=== PATIENT | female | born 1975 | race Caucasian/White ===

== ENCOUNTER 2017-09-25 12:13 | Emergency (ER) | payer BC ==
[2017-09-25] MEDS ORDERED: IBUPROFEN 800 MG TABLET PO ONE (13:19)
--- NOTE | 2017-09-25 13:22 | ER Document Report ---
ED Fall - General Chief Complaint: Rib Pain Stated Complaint: FALL/BACK PAIN, RIB PAIN Time Seen by Provider: 09/25/17 12:55 Mode of Arrival: Ambulatory Information source: Patient Notes: 41-year-old female presents to ED for complaint of pain in the left chest abdomen and pelvis after falling off of a counter on to the [place] in the kitchen landing on her left side with pain in the ribs kidney and spleen area. Pain refuses any narcotic medicine at this time she has agreed to take an ibuprofen. She also has a history of a PE in 2000 a TIA in 2007 and states she has been off of blood thinners for 3 weeks. TRAVEL OUTSIDE OF THE [place] IN LAST 30 DAYS: No - HPI Occurred: Just prior to arrival Where: Home, Indoors Context: Tripped, Slipped Associated symptoms: None Location of injury/pain: Abdomen, Chest Quality of pain: Sharp, Throbbing Severity: Moderate Pain Level: 4 - Patient refused pain medicine except for ibuprofen which was given to her when she first came in. At discharge patient was convinced to take a Bridgewater dispense pack as she was in a lot of pain. - Related data Allergies/Adverse Reactions: No Known Allergies Allergy (Unverified 09/25/17 12:16) Past Medical History - General Information source: Patient - Social History Smoking Status: Current Every Day Smoker Chew tobacco use (# tins/day): No Frequency of alcohol use: Occasional Drug Abuse: None Lives with: Family Family History: Reviewed & Not Pertinent Patient has suicidal ideation: No Patient has homicidal ideation: No - Past Medical History Cardiac Medical History: Reports: Hx Pulmonary Embolism - 2000 Pulmonary Medical History: Reports: None EENT Medical History: Reports: None Neurological Medical History: Reports: Hx Cerebrovascular Accident - TIA in 2007 Endocrine Medical History: Reports: None Renal/ Medical History: Reports: None Malignancy Medical History: Reports: None GI Medical History: Reports: None Musculoskeltal Medical History: Reports None Skin Medical History: Reports None Psychiatric Medical History: Reports: None Traumatic Medical History: Reports: None Infectious Medical History: Reports: None Surgical Hx: Negative Past Surgical History: Reports: None Review of Systems - Review of Systems Constitutional: No symptoms reported EENT: No symptoms reported Cardiovascular: Chest pain - Left chest wall pain Respiratory: Hurts to breathe Gastrointestinal: Abdominal pain - Left upper abdomen pain Genitourinary: No symptoms reported Female Genitourinary: No symptoms reported Musculoskeletal: No symptoms reported Skin: No symptoms reported Hematologic/Lymphatic: No symptoms reported Neurological/Psychological: No symptoms reported Physical Exam - Vital signs Vitals: Temp Pulse Resp BP 97.6 F 73 18 114/76 09/25/17 12:21 09/25/17 12:21 09/25/17 12:21 09/25/17 12:21 Interpretation: Normal - General General appearance: Appears well, Alert - HEENT Head: Normocephalic, Atraumatic Eyes: Normal Pupils: PERRL - Respiratory Respiratory status: No respiratory distress Chest status: Tender, Ecchymosis - Left chest and abdomen, Pain on movement, Pain with cough, Pain with deep breathing Breath sounds: Normal Chest palpation: Normal - Cardiovascular Rhythm: Regular Heart sounds: Normal auscultation Murmur: No - Abdominal Inspection: Normal Distension: No distension Bowel sounds: Normal Tenderness: Tender - Left upper abdomen, bruising noted Organomegaly: No organomegaly. No: Splenomegaly, Mass - Back Back: Normal, Nontender - Extremities General upper extremity: Normal inspection, Nontender, Normal color, Normal ROM , Normal temperature General lower extremity: Normal inspection, Nontender, Normal color, Normal ROM , Normal temperature, Normal weight bearing. No: Ilana's sign - Neurological Neuro grossly intact: Yes Cognition: Normal Orientation: AAOx4 John Coma Scale Eye Opening: Spontaneous John Coma Scale Verbal: Oriented John Coma Scale Motor: Obeys Commands Gilbert Coma Scale Total: 15 Speech: Normal Motor strength normal: LUE, RUE, LLE, RLE Sensory: Normal - Psychological Associated symptoms: Normal affect, Normal mood - Skin Skin Temperature: Warm Skin Moisture: Dry Skin Color: Normal, Ecchymosis - Left chest and abdomen Course - Re-evaluation Re-evalutation: 09/25/17 22:12 CT abdomen pelvis and chest with contrast completed due to fall with pain with respirations of pain with movement to the left chest and abdomen. CT abdomen pelvis and chest were negative. These were discussed with patient and family. Patient was given ibuprofen for her pain when she first came in and she was discharged home with a Bridgewater dispense pack. Patient did not want to take any medication as she is breast-feeding but she was in a lot of pain. Patient was given instructions on the need to take deep breaths to prevent pneumonia. After much instruction she did agree to take the Bridgewater dispense pack. 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 Both very well aware of the risk involved with a fall and landing on her right chest and spleen and kidney area. Her CTs were negative. Patient and were instructed to return to ED for any increase in pain bruising or any other symptoms. - Vital Signs Vital signs: Temp Pulse Resp BP Pulse Ox 97.6 F 76 16 115/76 99 09/25/17 12:21 09/25/17 15:50 09/25/17 15:50 09/25/17 15:50 09/25/17 15:50 - Laboratory Result Diagrams: 09/25/17 13:35 Laboratory results interpreted by me: 09/25/17 13:35 Chloride 110 H Carbon Dioxide 18 L - Diagnostic Test Radiology reviewed: Image reviewed, Reports reviewed Discharge - Discharge Clinical Impression: abdominal contusion left Fall Qualifiers: Encounter type: initial encounter Qualified Code(s): W19.XXXA - Unspecified fall, initial encounter Contusion of rib on left side Qualifiers: Encounter type: initial encounter Qualified Code(s): S20.212A - Contusion of left front wall of thorax, initial encounter Condition: Stable Disposition: HOME, SELF-CARE Additional Instructions: CONTUSION: Your injury has resulted in a contusion -- a crushing of the deep tissues. No injury to important structures was detected during the physician's exam. Contusions vary in the amount of pain they cause, and in the length of time required for healing. Typically, the area will become bruised, and will remain painful to touch for two or three weeks. However, most patients are back to working and playing within a few days. After the initial period of rest and cold-packs, your symptoms (together with the doctor's recommendations) will determine how rapidly you can get back to full activity. Usually this means "do what feels okay, but don't do things that hurt." If re-examination was recommended, it's important to follow up as instructed. Call the doctor or return any time if pain increases, if swelling becomes severe, if you develop numbness or weakness in an injured extremity, or if any other alarming symptoms occur. Rib Contusion You have been diagnosed as having bruised ribs. It will usually take a few weeks for these injured ribs to heal. You should cough or take a deep breath at least every hour or two to prevent lung complications. You should not engage in any strenuous physical activity until released by your physician. The usual rule is "if it hurts, don' t do it." Return if you develop any of the following: (1) Fever or chills. (2) Persistent cough, coughing up blood, or shortness of breath. (3) Increasing pain. (4) Weakness, lightheadedness, or fainting. USE OF TYLENOL (ACETAMINOPHEN): Acetaminophen may be taken for pain relief or fever control. It's much safer than aspirin, offering a wider range of "safe" dosages. It is safe during . Some brand names are Tylenol, Panadol, Datril, Anacin 3, Tempra, and Liquiprin. Acetaminophen can be repeated every four hours. The following are maximum recommended dosages: WEIGHT Dose Drops Elixir Chewable( 80mg) (LBS.) drprs=droppers tsp=teaspoon 6 40 mg 0.4 ml (1/2) 6-11 80 mg 0.8 ml (full) tsp 1 tab 12-16 120 mg 1 1/2 drprs 3/4 tsp 1 1/2 tabs 17-23 160 mg 2 drprs 1 tsp 2 tabs 24-30 240 mg 3 drprs 1 1/2 tsp 3 tabs 30-35 320 mg 2 tsp 4 tabs 36-41 360 mg 2 1/4 tsp 4 1/2 tabs 42-47 400 mg 2 1/2 tsp 5 tabs 48-53 480 mg 3 tsp 6 tabs 54-59 520 mg 3 1/4 tsp 6 1/2 tabs 60-64 560 mg 3 1/2 tsp 7 tabs 65-70 600 mg 3 3/4 tsp 7 1/2 tabs 71-76 640 mg 4 tsp 8 tabs 77-82 720 mg 4 1/2 tsp 9 tabs 83-88 800 mg 5 tsp 10 tabs >89 pounds or adults 650 mg to 900 mg Acetaminophen can be repeated every four hours. Maximum dose not to exceed 4000 mg a day. These maximum recommended dosages are slightly higher than the dosages written on the product container, but these dosages are very safe and below the toxic dosage for acetaminophen. ICE PACKS: Apply ice packs frequently against the painful area. Many different schedules are recommended, such as "20 minutes on, 20 minutes off" or "one hour ice, two hours rest." If you need to work, you may need to go longer between ice treatments. You should plan to have the area ice packed AT LEAST one fourth of the time. The ice should be applied over the wrap, tape, or splint, or over a layer of cloth -- not directly against the skin. Some ice bags have a built-in cloth and can be put directly on the skin. WARM PACKS: After approximately two days, apply gentle heat (such as a heating pad or hot water bottle) for about 20 to 30 minutes about every two hours -- at least four times daily. Warmth and elevation will help you make a more rapid recovery , and will ease the pain considerably. Do not use HOT heat, and never apply heat for longer than 30 minutes. The continuous heat can invisibly damage skin and muscles -- even when no burn is seen on the surface. Damaged muscles can make you MORE sore. ORAL NARCOTIC MEDICATION: You have been given a Dashbell dispense pack for pain control. This medication is a narcotic. It's best taken with food, as nausea can result if taken on an empty stomach. Don't operate machinery or drive within six hours of taking this medication. Do not combine this medicine with alcohol, or with any medication which can cause sedation (such as cold tablets or sleeping pills) unless you get permission from the physician. Narcotics tend to cause constipation. If possible, drink plenty of fluids and eat a diet high in fiber and fruits. FOLLOW-UP CARE: If you have been referred to a physician for follow-up care, call the physician s office for an appointment as you were instructed or within the next two days. If you experience worsening or a significant change in your symptoms, notify the physician immediately or return to the Emergency Department at any time for re-evaluation. Referrals: MYRNA CRUM MD [Primary Care Provider] - Follow up as needed
--- NOTE | 2017-09-25 14:11 | RADIOLOGY REPORT (SQ) ---
EXAM DESCRIPTION: CT ABD/PELVIS WITH IV ONLY COMPLETED DATE/TIME: 09/25/2017 1:56 pm REASON FOR STUDY: fall landed on [facility] pain abd pelv chest COMPARISON: None. TECHNIQUE: CT scan of the abdomen and pelvis performed using helical scanning technique with dynamic intravenous contrast injection. No oral contrast. Images reviewed with lung, soft tissue, and bone windows. Reconstructed coronal and sagittal MPR images reviewed. Delayed images for evaluation of the urinary system also acquired. All images stored on PACS. All CT scanners at this facility use dose modulation, iterative reconstruction, and/or weight based d osing when appropriate to reduce radiation dose to as low as reasonably achievable (ALARA). [facility]: Dose Right [facility]: CareDose [facility]: Dose Right [facility]: Teradose 4D [facility]: GiveNext CONTRAST TYPE AND DOSE: contrast/concentration: Isovue 370.00 mg/ml; Total Contrast Delivered: 82.0 ml; Total Saline Delivered: 49.8 ml RENAL FUNCTION: None required. The patient is less than 50 years old. RADIATION DOSE: . LIMITATIONS: None. FINDINGS: LOWER CHEST: See separate report of the CT of the chest. LIVER: Normal size. No masses. No dilated ducts. SPLEEN: Normal size. No focal lesions. PANCREAS: No masses. No significant calcifications. No adjacent inflammation or peripancreatic fluid collections. Pancreatic duct not dilated. GALLBLADDER: No identified stones by CT criteria. No inflammatory changes to suggest cholecystitis. ADRENAL GLANDS: No significant masses or asymmetry. RIGHT KIDNEY AND URETER: No solid masses. No significant calcifications. No hydronephrosis or hyd roureter. LEFT KIDNEY AND URETER: No solid masses. No significant calcifications. No hydronephrosis or hydr oureter. AORTA AND VESSELS: No aneurysm. No dissection. Renal arteries, SMA, celiac without stenosis. RETROPERITONEUM: No retroperitoneal adenopathy, hemorrhage or masses. BOWEL AND PERITONEAL CAVITY: No masses or inflammatory changes. No free fluid or peritoneal masses. APPENDIX: Normal. PELVIS: No mass. No free fluid. Normal bladder. ABDOMINAL WALL: No masses. No hernias. 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 OTHER: No other significant finding. IMPRESSION: NO ACUTE FINDING IN THE ABDOMEN OR PELVIS ON CT SCAN WITH IV CONTRAST. TECHNICAL DOCUMENTATION: JOB ID: [id number] Quality ID # [id number]: Final reports with documentation of one or more dose reduction techniques (e.g., Au tomated exposure control, adjustment of the mA and/or kV according to patient size, use of iterative reconstruction technique) 2010 [employer]- All Rights Reserved
--- NOTE | 2017-09-25 14:22 | RADIOLOGY REPORT (SQ) ---
EXAM DESCRIPTION: CT CHEST WITH COMPLETED DATE/TIME: 09/25/2017 1:56 pm REASON FOR STUDY: fall landed [place] pain abd pelv chest COMPARISON: None. TECHNIQUE: CT scan of the chest performed using helical scanning technique with dynamic intravenous contrast injection. Images reviewed with lung, soft tissue and bone windows. Reconstructed coronal and sagittal MPR images reviewed. All images stored on PACS. All CT scanners at this facility use dose modulation, iterative reconstruction, and/or weight based d osing when appropriate to reduce radiation dose to as low as reasonably achievable (ALARA). [facility]: Dose Right [facility]: CareDose [facility]: Dose Right [facility]: Teradose 4D [facility]: Timbre CONTRAST TYPE AND DOSE: 82 mL Isovue 370- low osmolar. RENAL FUNCTION: None required. The patient is less than 50 years old. RADIATION DOSE: . LIMITATIONS: None. FINDINGS: LUNGS AND PLEURA: No opacities, nodules, masses. No pneumothorax. No effusions. HILAR AND MEDIASTINAL STRUCTURES: No identified masses or abnormal nodes. HEART AND VASCULAR STRUCTURES: No aneurysm or dissection. No central pulmonary emboli. No pericardi al effusion. HARDWARE: None in the chest. UPPER ABDOMEN: No significant findings. Limited exam. THYROID AND OTHER SOFT TISSUES: No masses. No adenopathy. BONES: No significant finding. OTHER: No other significant finding. IMPRESSION: NORMAL CT OF THE CHEST WITH IV CONTRAST. TECHNICAL DOCUMENTATION: JOB ID: [id number] Quality ID # [id number]: Final reports with documentation of one or more dose reduction techniques (e.g., Au tomated exposure control, adjustment of the mA and/or kV according to patient size, use of iterative reconstruction technique) 2010 [email or web address]- All Rights Reserved
[2017-09-25 14:42] LABS: ANION GAP 17 (5-19); BLOOD UREA NITROGEN 12 mg/dL (7-20); CALCIUM 8.9 mg/dL (8.4-10.2); CARBON DIOXIDE 18 mmol/L (22-30); CHLORIDE 110 mmol/L (98-107); CREATININE RESULT 0.68 mg/dL (0.52-1.25); GLUCOSE 98 mg/dL (75-110); POTASSIUM 4.6 mmol/L (3.6-5.0); SODIUM 144.8 mmol/L (137-145)
[2017-09-25] MEDS ORDERED: HYDROCODONE/ACETAMINOPHEN 5-325 MG 6 TAB/DSPK PO PRN (14:51)
[2017-09-25 15:59] VITALS: BP 115/76
== END 2017-09-25 16:00 | disposition home or self-care (01) ==
LOC: ER 12:13
DX: S20.212A Contusion of left front wall of thorax, initial encounter (principal); S30.1XXA Contusion of abdominal wall, initial encounter; W17.89XA Other fall from one level to another, initial encounter; Y92.000 Kitchen of unspecified non-institutional (private) residence as the place of occurrence of the external cause; R07.81 Pleurodynia; R10.2 Pelvic and perineal pain; R10.12 Left upper quadrant pain; F17.200 Nicotine dependence, unspecified, uncomplicated; Z86.711 Personal history of pulmonary embolism; Z86.73 Personal history of transient ischemic attack (TIA), and cerebral infarction without residual deficits
CPT/HCPCS: 36415; 71260; 74177; 80048; 99284

== ENCOUNTER 2018-07-16 20:25 | Emergency (ER) | payer BC ==
[2018-07-16] MEDS ORDERED: IBUPROFEN 600 MG TABLET PO ONE (20:38)
[2018-07-16] MEDS ORDERED: RINGERS SOLUTION,LACTATED 1,000 ML IV ONE ×2 (20:38→21:53)
[2018-07-16] MEDS ORDERED: ONDANSETRON 4 MG TAB.RAPDIS ONE (20:57)
[2018-07-16] MEDS ORDERED: ONDANSETRON HCL INJ/PF 4 MG/2 ML SDV ONE (20:57)
--- NOTE | 2018-07-16 21:02 | RADIOLOGY REPORT (SQ) ---
EXAM DESCRIPTION: CHEST SINGLE VIEW COMPLETED DATE/TIME: 07/16/2018 8:47 pm REASON FOR STUDY: sepsis criteria COMPARISON: 01/02/2015 EXAM PARAMETERS: NUMBER OF VIEWS: One view. TECHNIQUE: Single frontal radiographic view of the chest acquired. RADIATION DOSE: NA LIMITATIONS: None. FINDINGS: LUNGS AND PLEURA: No opacities, masses or pneumothorax. No pleural effusion. MEDIASTINUM AND HILAR STRUCTURES: No masses. Contour normal. HEART AND VASCULAR STRUCTURES: Heart normal in size. Normal vasculature. BONES: No acute findings. HARDWARE: None in the chest. OTHER: No other significant finding. IMPRESSION: NO ACUTE RADIOGRAPHIC FINDING IN THE CHEST. TECHNICAL DOCUMENTATION: JOB ID: [id number] [place]-72 2010 [employer]- All Rights Reserved Reading location - IP/workstation name: [email or web address]
[2018-07-16] MEDS ORDERED: LIDOCAINE 1%/EPINEPHRINE INJ 20 ML VIAL INJ ONE (21:09)
--- NOTE | 2018-07-16 21:11 | ER Document Report ---
ED General - General Chief Complaint: Fever Stated Complaint: ABDOMINAL ISSUE Time Seen by Provider: 07/16/18 20:37 Cannot obtain history due to: Altered mental status Notes: Patient is a 42-year-old female who presents with relatively abrupt onset of fever, headache and rigors. The patient does not provide much history, the majority is provided by her at the bedside. He reports that over the course of the past 2 hours the patient has become increasingly confused, was shaking and noted to be febrile. He states earlier today the patient was completely normal and relatively abruptly developed the above symptoms. No history of similar in the past. There was some concern the patient may be developing mastitis of her left breast. No chronic medical problems. History is otherwise limited secondary to the patient's lethargy and degree of illness at time of presentation TRAVEL OUTSIDE OF THE [place] IN LAST 30 DAYS: No - Related Data Allergies/Adverse Reactions: No Known Allergies Allergy (Unverified 09/25/17 12:16) Past Medical History - General Information source: Patient - Social History Smoking Status: Never Smoker Frequency of alcohol use: None Drug Abuse: None Lives with: Spouse/Significant other Family History: Reviewed & Not Pertinent - Past Medical History Cardiac Medical History: Reports: Hx Pulmonary Embolism - 2000 Neurological Medical History: Reports: Hx Cerebrovascular Accident - TIA in 2007 Renal/ Medical History: Denies: Hx Peritoneal Dialysis Review of Systems - Review of Systems Notes: Constitutional: Positive for fever. HENT: Negative for sore throat. Eyes: Negative for visual changes. Cardiovascular: Negative for chest pain. Respiratory: Negative for shortness of breath. Gastrointestinal: Negative for abdominal pain, positive for nausea Genitourinary: Negative for dysuria. Musculoskeletal: Negative for back pain. Skin: Negative for rash. Neurological: Positive for headache and photophobia 10 point ROS negative except as marked above and in HPI. Physical Exam - Vital signs Vitals: BP 130/73 H 07/16/18 20:37 Interpretation: Tachycardic, Tachypneic, Febrile Notes: PHYSICAL EXAMINATION: GENERAL: Patient is ill in appearance, diaphoretic, somewhat lethargic HEAD: Atraumatic, normocephalic. EYES: Pupils equal round and reactive to light, extraocular movements intact, sclera anicteric, conjunctiva are normal. ENT: nares patent, oropharynx clear without exudates. Moist mucous membranes. NECK: Normal range of motion, supple without lymphadenopathy LUNGS: Mild tachypnea. Breath sounds clear to auscultation bilaterally and equal. No wheezes rales or rhonchi. HEART: Regular tachycardia without murmurs ABDOMEN: Soft, nontender, normoactive bowel sounds. No guarding, no rebound. No masses appreciated. EXTREMITIES: no pitting or edema. No cyanosis. NEUROLOGICAL: Face symmetric. Tongue protrudes midline. Extraocular motions intact. Pupils are 2 mm and equally reactive. Normal speech. 5 out of 5 strength in both the distal and proximal upper and lower extremities bilaterally. Sensation is grossly intact throughout. PSYCH: Lethargic but oriented SKIN: Diaphoretic, poor turgor, no rashes or lesions noted. Course - Re-evaluation Re-evalutation: 07/16/18 21:10 Patient presents ill in appearance, somewhat lethargic, does answer all orientation questions correctly although somewhat delayed in her responses. She is too weak to even sit up in the bed on her own. She is noted to be both febrile and tachycardic at time of presentation and her main complaint is headache and photophobia. Differential diagnosis includes [place] spotted fever, possible bacterial meningitis, viral meningitis, encephalitis, less likely to be an acute pneumonia, urinary tract infection, or intra-abdominal pathology given the absence of history for these diagnoses. The patient was concerned about some degree of mastitis on her left breast although there is no visible erythema or induration of the area and again the acuity of onset would certainly not suggest this diagnosis. I have emphasized the need for lumbar puncture and the patient and her have consented. Will obtain labs, receive IV fluids, and the begin IV antibiotics and admission to the hospital. The patient is in guarded condition, will continue to reassess at regular intervals 07/16/18 22:12 Patient is overall appearing much improved. She is no longer having rigors. She has tolerated lumbar puncture without any difficulty. Initial lactate is slightly elevated at 2.5. The remainder of her laboratories thus far are unremarkable. CSF was noted to be clear. Most probable differential includes [place] spotted fever at this time. The patient has been given 2 g of ceftriaxone, 200 mg of doxycycline. Awaiting lumbar puncture results. 07/16/18 23:26 Lumbar puncture unremarkable, 0 white blood cells this effectively excludes a diagnosis of a viral or bacterial meningitis. Influenza testing was to be sent as we apparently have had positive tests although patient does not have respiratory or GI symptoms to suggest this diagnosis. Will ambulate the patient and ensure that she is successful in this. She has tolerated oral intake without difficulty. States she overall feels much better. The patient and her would like to be discharged home. Hospitalization with observation was offered and declined. Patient will be discharged on a 2 week course of doxycycline. At this time will discharge with return precautions and follow-up recommendations. Verbal discharge instructions given a the bedside and opportunity for questions given. Medication warnings reviewed. Patient is in agreement with this plan and has verbalized understanding of return precautions and the need for primary care follow-up in the next 24-72 hours. - Vital Signs Vital signs: Temp Pulse Resp BP Pulse Ox 99.8 F 20 112/70 97 07/16/18 23:55 07/17/18 01:01 07/17/18 01:00 07/17/18 01:01 - Laboratory Result Diagrams: 07/16/18 21:05 07/16/18 21:05 Laboratory results interpreted by me: 07/16/18 07/16/18 07/16/18 20:51 21:05 21:05 MCH 33.9 H Seg Neutrophils % 90.5 H Lymphocytes % 5.9 L Absolute Neutrophils 9.3 H VBG pCO2 VBG HCO3 Chloride 109 H Carbon Dioxide 19 L BUN 6 L POC Glucose 113 H Lactic Acid 07/16/18 07/16/18 21:05 22:10 MCH Seg Neutrophils % Lymphocytes % Absolute Neutrophils VBG pCO2 31.0 L VBG HCO3 18.7 L Chloride Carbon Dioxide BUN POC Glucose Lactic Acid 2.5 H - Diagnostic Test Radiology reviewed: Image reviewed, Reports reviewed Radiology results interpreted by me: 07/16/18 21:11 Chest x-ray: No acute infiltrate or pneumothorax - EKG Interpretation by Me Additional EKG results interpreted by me: 07/16/18 22:17 Sinus tachycardia, rate 101. No ST elevations or depressions. QTC is 436 Procedures - Lumbar Puncture Lumbar puncture Consent obtained: Yes Lumbar puncture pre-procedure: Sterile PPE donned, Chloraprep applied, Sterile drapes applied Patient position: Sitting Needle size: 22 Lumbar puncture location: l4-5 Anesthetic type: 1% Lidocaine w/epi mL's of anesthetic: 5 Amount/type of drainage: 5 cc clear Number of attempts: 1 Complications: No Critical Care Note - Critical Care Note Total time excluding time spent on procedures (mins): 37 Comments: Critical care time spent obtaining history from patient or surrogate, development of treatment plan with patient or surrogate, evaluation of patient' s response to treatment, examination of patient, ordering and performing treatments and interventions, ordering and review of laboratory studies, re- evaluation of patient's condition, ordering and review of radiographic studies and review of old charts Discharge - Discharge Clinical Impression: [place] spotted fever, Rigors, SIRS (systemic inflammatory response syndrome) Headache Qualifiers: Headache type: unspecified Headache chronicity pattern: acute headache Intractability: not intractable Qualified Code(s): R51 - Headache Condition: Fair Disposition: HOME, SELF-CARE Additional Instructions: The exact cause of your symptoms today is uncertain, but given what we have discussed today your being empirically treated with doxycycline for [place] Spotted fever. This is a tickborne illness that is very common in [place]. Please take all the antibiotics even if you are feeling better. Please return to the emergency department immediately if you develop worsening of your headache, confusion, persistent vomiting, or have any other symptoms that are worrisome to you. Please follow-up with your primary care doctor in the next 24-48 hours. Prescriptions: Doxycycline Hyclate 100 mg PO BID #28 capsule Referrals: MYRNA CRUM MD [Primary Care Provider] - Follow up as needed
[2018-07-16] MEDS ORDERED: MIDAZOLAM 2 MG/2 ML INJ ONE (21:27)
[2018-07-16 21:31] LABS: ABSOLUTE LYMPHOCYTES (AUTO) 0.6 10^3/uL (0.5-4.7); ABSOLUTE MONOCYTES (AUTO) 0.3 10^3/uL (0.1-1.4); ABSOLUTE NEUT (AUTO) 9.3 10^3/uL (1.7-8.2); BASOPHILS % (AUTO) 0.2 % (0-2); EOSINOPHILS % (AUTO) 0.1 % (0-6); HEMOGLOBIN 13.6 g/dL (12.0-15.5); LYMPHOCYTES % (AUTO) 5.9 % (13-45); MEAN CORPUSCULAR HEMOGLOBIN 33.9 pg (27.0-33.4); MEAN CORPUSCULAR VOLUME 97 fl (80-97); MONOCYTES % (AUTO) 3.3 % (3-13); PLATELET COUNT 160 10^3/uL (150-450); RED BLOOD COUNT 4.02 10^6/uL (3.72-5.28); RED CELL DISTRIBUTION WIDTH 11.8 % (11.5-14.0); SEGMENTED NEUTROPHILS % (AUTO) 90.5 % (42-78); TOTAL CELLS COUNTED % (AUTO) 100 %; WHITE BLOOD COUNT 10.3 10^3/uL (4.0-10.5)
[2018-07-16 21:49] LABS: INTERNATIONAL RATION (INR) 1.01; PROTHROMBIN TIME 13.8 SEC (11.4-15.4)
[2018-07-16 21:50] LABS: ALANINE AMINOTRANSFERASE 22 U/L (9-52); ALBUMIN 4.1 g/dL (3.5-5.0); ALKALINE PHOSPHATASE 55 U/L (38-126); ANION GAP 12 (5-19); ASPARTATE AMINO TRANSFERASE 23 U/L (14-36); BILIRUBIN,DIRECT 0.2 mg/dL (0.0-0.4); BILIRUBIN,TOTAL 0.5 mg/dL (0.2-1.3); BLOOD UREA NITROGEN 6 mg/dL (7-20); CARBON DIOXIDE 19 mmol/L (22-30); CHLORIDE 109 mmol/L (98-107); GLUCOSE 101 mg/dL (75-110); POTASSIUM 3.6 mmol/L (3.6-5.0); SODIUM 139.9 mmol/L (137-145); TOTAL PROTEIN 7.1 g/dL (6.3-8.2)
[2018-07-16] MEDS ORDERED: ACETAMINOPHEN 325 MG TABLET PO ONE (21:53)
[2018-07-16] MEDS ORDERED: MIDAZOLAM 2 MG/2 ML INJ IV ONE (21:53)
[2018-07-16] MEDS ORDERED: CEFTRIAXONE INJ 1000 MG VIAL IV ONE (21:53)
[2018-07-16] MEDS ORDERED: DOXYCYCLINE HYCLATE INJ 100 MG VIAL IV ONE (21:54)
[2018-07-16 22:25] LABS: COLOR ALL TUBES COLORLESS; CSF TUBE NUMBER 1
[2018-07-16 22:26] LABS: APPEARANCE ALL TUBES CLEAR; CSF TOTAL VOLUME 3.6 CC; RED BLOOD CELL,CSF 0 /uL (0-10); VOLUME TUBE 1 0.8 CC; VOLUME TUBE 2 0.8 CC
[2018-07-16 22:27] LABS: WHITE BLOOD CELL,CSF 0 /uL (0-5)
[2018-07-16 22:27] LABS: CSF TUBE NUMBER 4
[2018-07-16 22:28] LABS: APPEARANCE ALL TUBES CLEAR; COLOR ALL TUBES COLORLESS
[2018-07-16 22:29] LABS: CSF TOTAL VOLUME 3.6 CC; RED BLOOD CELL,CSF 0 /uL (0-10); VOLUME TUBE 1 0.8 CC; VOLUME TUBE 2 0.8 CC; WHITE BLOOD CELL,CSF 2 /uL (0-5)
[2018-07-16 22:29] LABS: APPEARANCE,URINE CLEAR; BILIRUBIN,URINE NEGATIVE (NEGATIVE); COLOR,URINE STRAW; GLUCOSE, URINE NEGATIVE (NEGATIVE); KETONES,URINE NEGATIVE (NEGATIVE); LEUKOCYTE ESTERASE,URINE NEGATIVE (NEGATIVE); NITRITE,URINE NEGATIVE (NEGATIVE); PROTEIN,URINE NEGATIVE (NEGATIVE); URINE SPECIFIC GRAVITY 1.004; UROBILINOGEN,URINE NEGATIVE mg/dL (<2.0)
[2018-07-16 22:34] LABS: VENOUS BLOOD BASE EXCESS -4.9 mmol/L; VENOUS BLOOD HCO3 18.7 mmol/L (20-32); VENOUS BLOOD PH 7.4 (7.30-7.42)
[2018-07-16 22:45] LABS: GLUCOSE,CSF 49 mg/dL (40-70); PROTEIN,CSF 39 mg/dL (12-60)
[2018-07-16 23:44] LABS: A TYPE INFLUENZA AG NEGATIVE (NEGATIVE); B INFLUENZA AG NEGATIVE (NEGATIVE)
[2018-07-17 02:27] VITALS: BP 112/70
--- NOTE | 2018-07-17 12:38 | EKG REPORT ---
SEVERITY:- BORDERLINE ECG - SINUS TACHYCARDIA BORDERLINE T ABNORMALITIES, ANTERIOR LEADS : Confirmed by: Conchis Gerber MD 17-Jul-2018 12:38:02
== END 2018-07-17 01:30 | disposition home or self-care (01) ==
LOC: ER 20:25
PROC: 00JU3ZZ Inspection of Spinal Canal, Percutaneous Approach (ICD-10-PCS; principal; 2018-07-16)
DX: A77.0 Spotted fever due to Rickettsia rickettsii (principal); R65.10 Systemic inflammatory response syndrome (SIRS) of non-infectious origin without acute organ dysfunction; R50.9 Fever, unspecified; R51 Headache; Z86.711 Personal history of pulmonary embolism; Z86.73 Personal history of transient ischemic attack (TIA), and cerebral infarction without residual deficits
CPT/HCPCS: 93005; 99285; 96361; 96375; 96365; 96367; 36415; 87040; 87070; 87086; 87205; 87210; 82962; 87252; 85025; 85610; 89050; 82945; 84157; 81025; 87077; 80053; 81001; 82803; 83605; 87804; 71045; 93010; 62270; J2250; J3490 ×2; S0119; J0696; J2405